=== PATIENT | male | born 1960 | race African-American/Black ===

== ENCOUNTER 2017-08-03 23:03 | Emergency (ER) | payer MEDICAID ==
[~2017-08-03] VITALS: Ht 177.8 cm; Wt 73.0 kg
[2017-08-03 23:34] VITALS: BP 163/106
== END 2017-08-04 05:49 | disposition left against medical advice (07) ==
LOC: ER 23:32
DX: M25.572 Pain in left ankle and joints of left foot (principal); Z53.21 Procedure and treatment not carried out due to patient leaving prior to being seen by health care provider